=== PATIENT | male | born 1995 | race Caucasian/White ===

== ENCOUNTER 2019-12-10 05:05 | Emergency (ER) | payer BC ==
[~2019-12-10] VITALS: Ht 185.4 cm; Wt 78.6 kg
[2019-12-10 06:02] LABS: STREP SCREEN NEGATIVE
[2019-12-10] MEDS ORDERED: MAGIC MOUTH PO (06:26)
[2019-12-10 07:17] VITALS: BP 105/59; PULSE 94; TEMP 101.3
== END 2019-12-10 07:17 | disposition home or self-care (01) ==
LOC: COL.ER 05:05
PROVIDERS: Emergency Medicine
DX: J02.9 Acute pharyngitis, unspecified (principal); R50.9 Fever, unspecified; R51.9 Headache, unspecified; Z20.828 Contact with and (suspected) exposure to other viral communicable diseases